=== PATIENT | male | born 1935 | race Caucasian/White ===

== ENCOUNTER 2022-08-18 21:27 | Inpatient (IN) | payer MEDICARE, BC ==
[2022-08-18] MEDS ORDERED: Sodium Chloride 0.9% 1,000 ML IV SCH (23:15)
[2022-08-19 00:13] LABS: CORONAVIRUS COVID-19 NAA POSITIVE (NEGATIVE)
[2022-08-19] MEDS ORDERED: Azithromycin 500 MG in Sodium Chloride 0.9% 250 ML IV STA (00:37)
[2022-08-19] MEDS ORDERED: cefTRIAXone 1 GM in Sodium Chloride 0.9% 100 ML IV STA (00:37)
[2022-08-19] MEDS ORDERED: Dexamethasone 10 MG/ML SDV IVPUSH STA (02:27)
[2022-08-19] MEDS ORDERED: REMDESIVIR 200 MG in Sodium Chloride 0.9% 250 ML IV ONE (02:28)
[2022-08-19] MEDS ORDERED: Iopamidol 755 Mg/ML 100 ML Bottle IVPUSH ONE (03:29)
[2022-08-19] MEDS ORDERED: Albuterol/Ipratropium 3.0-0.5 MG/3 ML Neb Soln NEB PRN (08:10)
[2022-08-19] MEDS ORDERED: Albuterol 0.083% 2.5 MG/3 ML Neb Soln NEB PRN (08:10)
[2022-08-19] MEDS ORDERED: Docusate Sodium 100 MG Cap PO PRN (08:10)
[2022-08-19] MEDS ORDERED: Ondansetron 4 MG/2 ML SDV IV PRN (08:10)
[2022-08-19] MEDS: Insulin Lispro 100 Unit/ML 3 ML KwikPen SUBCUT SCH ×3 (12:40→22:32)
[2022-08-19] MEDS: atorvaSTATin 20 MG Tab PO SCH (22:18)
[2022-08-19] MEDS: guaiFENesin/Dextromethorphan 100-10 MG/5 ML Soln 5 ML Cup PO SCH (22:19)
[2022-08-19] MEDS: Carvedilol 6.25 MG Tab PO SCH (22:19)
[2022-08-20] MEDS ORDERED: Sodium Chloride 0.9% 100 ML ONE (04:15)
[2022-08-20] MEDS: REMDESIVIR 100 MG in Sodium Chloride 0.9% 250 ML IV SCH (04:28)
[2022-08-20] MEDS: guaiFENesin/Dextromethorphan 100-10 MG/5 ML Soln 5 ML Cup PO SCH ×3 (06:51→21:44)
[2022-08-20] MEDS: Insulin Lispro 100 Unit/ML 3 ML KwikPen SUBCUT SCH ×4 (08:39→22:13)
[2022-08-20] MEDS: Carvedilol 6.25 MG Tab PO SCH ×2 (09:25→21:45)
[2022-08-20] MEDS: Lisinopril 20 MG Tab PO SCH (09:26)
[2022-08-20] MEDS: Dexamethasone 6 MG TABLET PO SCH (09:26)
[2022-08-20] MEDS: Terazosin 5 MG Cap PO SCH (09:26)
[2022-08-20] MEDS: Enoxaparin 30 MG/0.3 ML Syringe SUBCUT SCH (09:26)
[2022-08-20] MEDS: amLODIPine 5 MG Tab PO SCH (09:26)
[2022-08-20] MEDS: atorvaSTATin 20 MG Tab PO SCH (21:45)
[2022-08-21] MEDS: REMDESIVIR 100 MG in Sodium Chloride 0.9% 250 ML IV SCH (05:11)
[2022-08-21] MEDS: guaiFENesin/Dextromethorphan 100-10 MG/5 ML Soln 5 ML Cup PO SCH ×3 (06:41→20:37)
[2022-08-21] MEDS: Insulin Lispro 100 Unit/ML 3 ML KwikPen SUBCUT SCH ×4 (06:46→23:49)
[2022-08-21] MEDS: Carvedilol 6.25 MG Tab PO SCH ×2 (08:52→20:38)
[2022-08-21] MEDS: Lisinopril 20 MG Tab PO SCH (08:53)
[2022-08-21] MEDS: Terazosin 5 MG Cap PO SCH (08:53)
[2022-08-21] MEDS: Enoxaparin 30 MG/0.3 ML Syringe SUBCUT SCH (08:54)
[2022-08-21] MEDS: Dexamethasone 6 MG TABLET PO SCH (08:54)
[2022-08-21] MEDS: amLODIPine 5 MG Tab PO SCH (08:55)
[2022-08-21] MEDS: Albuterol/Ipratropium 3.0-0.5 MG/3 ML Neb Soln NEB SCH ×2 (09:41→20:17)
[2022-08-21] MEDS: atorvaSTATin 20 MG Tab PO SCH (20:38)
[2022-08-21] MEDS: Acetaminophen 325 MG Tab PO PRN (21:10)
[2022-08-22] MEDS: REMDESIVIR 100 MG in Sodium Chloride 0.9% 250 ML IV SCH (03:35)
[2022-08-22] MEDS: guaiFENesin/Dextromethorphan 100-10 MG/5 ML Soln 5 ML Cup PO SCH (06:21)
[2022-08-22] MEDS: Albuterol/Ipratropium 3.0-0.5 MG/3 ML Neb Soln NEB SCH (06:25)
[2022-08-22] MEDS: Insulin Lispro 100 Unit/ML 3 ML KwikPen SUBCUT SCH ×2 (06:43→11:32)
[2022-08-22] MEDS: Enoxaparin 30 MG/0.3 ML Syringe SUBCUT SCH (08:28)
[2022-08-22] MEDS: amLODIPine 5 MG Tab PO SCH (08:29)
[2022-08-22] MEDS: Lisinopril 20 MG Tab PO SCH (08:29)
[2022-08-22] MEDS: Dexamethasone 6 MG TABLET PO SCH (08:29)
[2022-08-22] MEDS: Carvedilol 6.25 MG Tab PO SCH (08:29)
[2022-08-22] MEDS: Terazosin 5 MG Cap PO SCH (08:29)
[2022-08-22] MEDS: Acetaminophen 325 MG Tab PO PRN (10:22)
== END 2022-08-22 14:35 | disposition home or self-care (01) | DRG 177 ==
LOC: JD.ED 21:27 → JD.MS 08-19 04:00
PROVIDERS: ADMIT Internal Medicine; ATTEND Internal Medicine
PROC: 8E0ZXY6 Isolation (ICD-10-PCS; principal; 2022-08-18)
PROC: XW033E5 Introduction of Remdesivir Anti-infective into Peripheral Vein, Percutaneous Approach, New Technology Group 5 (ICD-10-PCS; 2022-08-18)
PROC: 3E0333Z Introduction of Anti-inflammatory into Peripheral Vein, Percutaneous Approach (ICD-10-PCS; 2022-08-18)
DX: U07.1 COVID-19 (principal); R79.89 Other specified abnormal findings of blood chemistry; J12.82 Pneumonia due to coronavirus disease 2019; I10 Essential (primary) hypertension; M19.90 Unspecified osteoarthritis, unspecified site; Z88.7 Allergy status to serum and vaccine; J96.01 Acute respiratory failure with hypoxia; D47.1 Chronic myeloproliferative disease; Z66 Do not resuscitate; N40.0 Benign prostatic hyperplasia without lower urinary tract symptoms; I25.10 Atherosclerotic heart disease of native coronary artery without angina pectoris; E78.5 Hyperlipidemia, unspecified; G47.33 Obstructive sleep apnea (adult) (pediatric); E11.22 Type 2 diabetes mellitus with diabetic chronic kidney disease; I12.9 Hypertensive chronic kidney disease with stage 1 through stage 4 chronic kidney disease, or unspecified chronic kidney disease; N18.9 Chronic kidney disease, unspecified; N18.31 Chronic kidney disease, stage 3a; Z79.4 Long term (current) use of insulin; Z95.1 Presence of aortocoronary bypass graft; Z98.890 Other specified postprocedural states; Z90.49 Acquired absence of other specified parts of digestive tract
CPT/HCPCS: 0241U; 36415; 36600; 71045; 71275; 73030; 80053; 81001; 82803; 82947; 83036; 83605; 83735; 83880; 84145; 84484; 85007; 85025; 85027; 85379; 85610; 85730; 86140; 87040; 93005; 94640; 94667; 94668; 94760; 94761; 96361; 96365; 96367; 96375; 97116; 97162; 97166; 99285; A9270-GY; J0456; J0696; J1100; J1650; J2405; J7030; J7050; J7620-GY; J8540; Q9967

== ENCOUNTER 2022-10-24 16:05 | Inpatient (IN) | payer MEDICARE, BC ==
[2022-10-24] MEDS ORDERED: Sodium Chloride 0.9% 10 ML Syringe FLUSH PRN (16:42)
[2022-10-24] MEDS ORDERED: Furosemide 40 MG/4 ML VIAL IVPUSH ONE (16:43)
[2022-10-24 18:04] LABS: CORONAVIRUS COVID-19 NAA NEGATIVE (NEGATIVE)
[2022-10-24] MEDS ORDERED: Acetaminophen 325 MG Tab PO PRN (18:31)
[2022-10-24] MEDS ORDERED: Docusate Sodium 100 MG Cap PO PRN (18:31)
[2022-10-24] MEDS ORDERED: oxyCODONE 5 MG Tab PO PRN (18:31)
[2022-10-24] MEDS: Heparin Sodium 5,000 Units/ML Vial SUBCUT SCH (21:01)
[2022-10-25] MEDS: Heparin Sodium 5,000 Units/ML Vial SUBCUT SCH ×3 (04:51→21:08)
[2022-10-25] MEDS: Furosemide 40 MG Tab PO SCH ×2 (05:06→13:03)
[2022-10-25] MEDS ORDERED: Furosemide 20 MG Tab PO SCH (09:00)
[2022-10-25] MEDS: Carvedilol 6.25 MG Tab PO SCH ×2 (09:34→21:08)
[2022-10-25] MEDS: Lisinopril 20 MG Tab PO SCH (09:34)
[2022-10-25] MEDS: amLODIPine 10 MG Tab PO SCH (09:34)
[2022-10-25] MEDS: Terazosin 5 MG Cap PO SCH (09:34)
[2022-10-25] MEDS: atorvaSTATin 20 MG Tab PO SCH (21:07)
[2022-10-26] MEDS: Heparin Sodium 5,000 Units/ML Vial SUBCUT SCH ×3 (05:35→20:40)
[2022-10-26] MEDS: Furosemide 40 MG Tab PO SCH ×2 (06:37→14:38)
[2022-10-26] MEDS: amLODIPine 10 MG Tab PO SCH (08:01)
[2022-10-26] MEDS: Carvedilol 6.25 MG Tab PO SCH (08:02)
[2022-10-26] MEDS: Lisinopril 20 MG Tab PO SCH (08:03)
[2022-10-26] MEDS: Terazosin 5 MG Cap PO SCH (08:03)
[2022-10-26] MEDS: atorvaSTATin 20 MG Tab PO SCH (20:40)
[2022-10-26] MEDS: Carvedilol 3.125 MG Tab PO SCH (20:40)
[2022-10-27] MEDS: Heparin Sodium 5,000 Units/ML Vial SUBCUT SCH ×3 (08:01→20:45)
[2022-10-27] MEDS: Furosemide 40 MG Tab PO SCH (08:02)
[2022-10-27] MEDS ORDERED: Iopamidol 755 Mg/ML 100 ML Bottle IVPUSH ONE (09:07)
[2022-10-27] MEDS ORDERED: Sodium Chloride 0.9% 10 ML Syringe FLUSH PRN (09:07)
[2022-10-27] MEDS ORDERED: Sodium Chloride 0.9% 100 ML IV SCH (09:15)
[2022-10-27] MEDS: amLODIPine 10 MG Tab PO SCH (09:59)
[2022-10-27] MEDS: Carvedilol 3.125 MG Tab PO SCH ×2 (10:00→20:45)
[2022-10-27] MEDS: Terazosin 5 MG Cap PO SCH (10:01)
[2022-10-27] MEDS: atorvaSTATin 20 MG Tab PO SCH (21:19)
[2022-10-28] MEDS: Heparin Sodium 5,000 Units/ML Vial SUBCUT SCH ×2 (04:35→12:33)
[2022-10-28] MEDS ORDERED: Furosemide 20 MG Tab PO SCH (06:00)
[2022-10-28] MEDS: Carvedilol 3.125 MG Tab PO SCH (09:07)
[2022-10-28] MEDS: amLODIPine 10 MG Tab PO SCH (09:07)
[2022-10-28] MEDS: Terazosin 5 MG Cap PO SCH (09:07)
[2022-10-28] MEDS ORDERED: Furosemide 20 MG Tab PO ONE (09:22)
== END 2022-10-28 12:55 | DRG 291 ==
LOC: JD.ED 16:05 → JD.MS 18:31
PROVIDERS: ADMIT Internal Medicine; ATTEND Internal Medicine
DX: I13.0 Hypertensive heart and chronic kidney disease with heart failure and stage 1 through stage 4 chronic kidney disease, or unspecified chronic kidney disease (principal); I50.43 Acute on chronic combined systolic (congestive) and diastolic (congestive) heart failure; J96.01 Acute respiratory failure with hypoxia; I25.810 Atherosclerosis of coronary artery bypass graft(s) without angina pectoris; D47.1 Chronic myeloproliferative disease; Z66 Do not resuscitate; R79.89 Other specified abnormal findings of blood chemistry; N40.0 Benign prostatic hyperplasia without lower urinary tract symptoms; E78.5 Hyperlipidemia, unspecified; N18.31 Chronic kidney disease, stage 3a; F03.90 Unspecified dementia, unspecified severity, without behavioral disturbance, psychotic disturbance, mood disturbance, and anxiety; G47.33 Obstructive sleep apnea (adult) (pediatric); I27.20 Pulmonary hypertension, unspecified; Z20.822 Contact with and (suspected) exposure to COVID-19; E11.22 Type 2 diabetes mellitus with diabetic chronic kidney disease; I50.9 Heart failure, unspecified; H54.7 Unspecified visual loss; M19.90 Unspecified osteoarthritis, unspecified site; J84.10 Pulmonary fibrosis, unspecified; Z79.1 Long term (current) use of non-steroidal anti-inflammatories (NSAID); Z88.2 Allergy status to sulfonamides; Z88.8 Allergy status to other drugs, medicaments and biological substances; R09.02 Hypoxemia; Z88.1 Allergy status to other antibiotic agents; Z79.4 Long term (current) use of insulin; Z95.1 Presence of aortocoronary bypass graft; Z97.3 Presence of spectacles and contact lenses; I11.0 Hypertensive heart disease with heart failure; Z97.2 Presence of dental prosthetic device (complete) (partial); Z86.16 Personal history of COVID-19; Z98.890 Other specified postprocedural states; Z90.49 Acquired absence of other specified parts of digestive tract; Z88.7 Allergy status to serum and vaccine; Z79.899 Other long term (current) drug therapy
CPT/HCPCS: 0241U; 36415; 71045; 71275; 80048; 80053; 81001; 83735; 83880; 84145; 84484; 85025; 85379; 86140; 87641; 93005; 93307; 94760; 94761; 96374; 97110; 97116; 97162; 97530; 99285; 93010; A9270-GY; J1644; J1940; J3490; Q9967